=== PATIENT | female | born 1950 | race Caucasian/White ===

== ENCOUNTER 2021-09-30 06:32 | Day surgery (SDC) | payer MEDICARE ==
[2021-09-23 11:15] LABS: ALBUMIN 3.1 G/DL (3.4-5.0); ALBUMIN/GLOBULIN RATIO 0.7 (1.1-1.5); ALKALINE PHOSPHATASE 61 IU/L (46-116); BLOOD UREA NITROGEN 17 MG/DL (7-18); BUN/CREATININE RATIO 18.3 (6.6-38.0); CALCIUM 8.6 MG/DL (8.5-10.1); CHLORIDE 104 MMOL/L (99-107); CREATININE 0.93 MG/DL (0.40-0.90); PRE OP ALT 15 U/L (30-65); PRE OP ANION GAP 8 (8-16); PRE OP AST 16 U/L (10-37); PRE OP BILIRUB, TOTAL 0.3 MG/DL (0.0-1.0); PRE OP GLUCOSE 94 MG/DL (70-104); PRE OP POTASSIUM 4.6 MMOL/L (3.4-5.1); PRE OP SODIUM 140 MMOL/L (135-145); TOTAL CARBON DIOXIDE 28.4 MMOL/L (24-32); TOTAL PROTEIN 7.4 G/DL (6.4-8.2); eGFR 59 ML/MIN
[2021-09-23 11:17] LABS: BASOPHILS % (AUTO) 0.6 % (0-1); EOSINOPHILS # (AUTO) 0.1 X10'3 (0-0.9); LYMPHOCYTES # (AUTO) 1.6 X10'3 (1.1-4.8); LYMPHOCYTES % (AUTO) 26.8 % (21-51); MEAN CORPUSCULAR HEMOGLOBIN 28.9 PG (27.0-31.0); MEAN CORPUSCULAR HGB CONC 32.9 g/dL (33.0-36.5); MEAN CORPUSCULAR VOLUME 87.9 FL (78-98); MEAN PLATELET VOLUME 8.4 FL (7.4-10.4); MONOCYTES # (AUTO) 0.6 X10'3 (0-0.9); MONOCYTES % (AUTO) 10.7 % (2-12); NEUTROPHILS # (AUTO) 3.6 X10'3 (1.8-7.7); NEUTROPHILS % (AUTO) 59.9 % (42-75); PRE OP HEMATOCRIT 34.5 % (35.0-45.0); PRE OP HEMOGLOBIN 11.3 g/dL (12.0-16.0); PRE OP PLATELET COUNT 343 X10'3 (140-440); RED BLOOD COUNT 3.93 X10'6 (4.20-5.60); RED CELL DISTRIBUTION WIDTH 14.7 % (11.5-14.5)
[2021-09-30] VITALS (13 sets, daily range): BP systolic 94–130; BP diastolic 56–85
[~2021-09-30] VITALS: Ht 157.5 cm; Wt 65.0 kg
[~2021-09-30 06:32] MED LIST: ACET-2 PO; AROM1FL. PO; DOCU-21 PO; GABA-532 PO; OMEP40CA21 PO; SENN-25 PO; [UNRECOGNIZED DRUG - CODE] PO; clindamycin-Cleocin 900mg/D5W 50 ML IV ONE; famotidine 20mg tablet PO ONE; ringers solution, lacted 1,000 ML IV SCH
[2021-09-30] MEDS ORDERED: LIDOcaine 1% 30ml preserv. free vial ONE (06:36)
[2021-09-30] MEDS ORDERED: BUPIVAcaine 0.5% inj/PF 30 ML ONE (06:36)
[2021-09-30] MEDS ORDERED: ePHEDrine 50MG/ML INJ. ONE (07:52)
[2021-09-30] MEDS ORDERED: sevoflurane 250ml liquid IH ONE (07:52)
[2021-09-30] MEDS ORDERED: fentaNYL/PF 50MCG/1 ML 2ML syringe ONE (07:59)
[2021-09-30] MEDS ORDERED: midazolam 1 mg/ML 2ml injection ONE (07:59)
[2021-09-30] MEDS ORDERED: BUPIVAcaine 0.5% inj/PF 30 ml vial IJ ONE (08:33)
[2021-09-30] MEDS ORDERED: albumin (Human) 5% 250ml 250 ML IV ONE (08:43)
[2021-09-30] MEDS ORDERED: HYDROmorphone/PF 0.2 MG/ML SYRINGE IV PRN ×2 (09:10)
[2021-09-30] MEDS ORDERED: meperidine/PF 25mg/ml syringe IV PRN ×2 (09:10)
[2021-09-30] MEDS ORDERED: ringers solution, lacted 1,000 ML IV SCH (09:10)
[2021-09-30] MEDS ORDERED: ondansetron/PF 4mg/2ml inj IV PRN ×2 (09:10→10:05)
[2021-09-30] MEDS ORDERED: ondansetron/PF 4mg/2ml inj ONE (09:44)
[2021-09-30] MEDS ORDERED: rocuronium 10mg/ml inj IV ONE (09:44)
[2021-09-30] MEDS ORDERED: dexamethasone sod phosphate 4mg/ml inj. ONE (09:44)
[2021-09-30] MEDS ORDERED: propofol inj 20 ML IV ONE (09:45)
[2021-09-30] MEDS ORDERED: acetaminophen 1,000mg/100ml IV 100 ML IV ONE (09:46)
[2021-09-30] MEDS ORDERED: sugammadex 200mg/2ml injection IV ONE (09:53)
[2021-09-30] MEDS ORDERED: HYDROcodone/acetaminophen 10/325mg tab PO PRN (10:05)
[2021-09-30] MEDS ORDERED: HYDROcodone/acetaminophen 5mg/325mg tablet PO PRN (10:05)
[2021-09-30] MEDS ORDERED: naloxone 0.4 mg/ml inj IV PRN (10:05)
--- NOTE | 2021-09-30 10:10 | NUR ---
Received from OR via , accompanied by Anesthesiologist and report given by Anesthesiolgist. PATIENT WAKING UP, DENIES PAIN, V/S WNL, SCD ON 20G PIV TO RUE, NEUROVASCULAR CHECKS INTACT. LAP SITES TO ABDOMEN CDI WITH NO S/S OF COMPLICATIONS.
[2021-09-30] MEDS: meperidine/PF 25mg/ml syringe IV PRN ×2 (10:34→10:50)
--- NOTE | 2021-09-30 13:10 | NUR ---
A&ox4, DENIES PAIN, V/S WNL, SCD Off 20G PIV TO RUE d/c, NEUROVASCULAR CHECKS INTACT. LAP SITES TO ABDOMEN CDI WITH NO S/S OF COMPLICATIONS. i have reviewed d/c instructions and diet with patient and she has verbalized understanding. patient d/c home with all belongings and friend gave transport home,.
== END 2021-09-30 13:10 | disposition home or self-care (01) ==
LOC: PAS 06:32 → EDSTATUS 08:30 → PAS 13:10
PROVIDERS: ATTEND Surgery
DX: K44.9 Diaphragmatic hernia without obstruction or gangrene (principal); K21.9 Gastro-esophageal reflux disease without esophagitis; G43.909 Migraine, unspecified, not intractable, without status migrainosus; Z88.0 Allergy status to penicillin; Z88.5 Allergy status to narcotic agent; Z79.899 Other long term (current) drug therapy; Z96.651 Presence of right artificial knee joint; Z98.890 Other specified postprocedural states; Z90.710 Acquired absence of both cervix and uterus
CPT/HCPCS: 36415; 43282; 71045; 71046; 80053; 82948; 85025; 86885; 86900; 86901; 93005; C1758; C1781; J0131; J1100; J2175; J2250; J2405; J2704; J3010; J3490; J7030; J7120; P9045; S0020; Z7506; Z7508; Z7512; A4618